=== PATIENT | male | born 1965 ===

== ENCOUNTER 2018-10-24 17:43 | Emergency (ER) | payer OTHER ==
[2018-10-24 18:07] VITALS: RESP 18; TEMP 99
--- NOTE | 2018-10-24 19:11 | ED PDOC ---
Upper Extremity Pain/Injury Time Seen by Provider: 10/24/18 18:09 Chief Complaint (Nursing): Upper Extremity Problem/Injury Chief Complaint (Provider): Upper Extremity Problem/Injury History Per: Patient History/Exam Limitations: no limitations Onset/Duration Of Symptoms: Hrs Current Symptoms Are (Timing): Still Present Additional Complaint(s): Patient is a 53 y/o male with no significant PMHx who presents to the ED for evaluation of a left hand injury at work. Patient states he was pulling a heavy metal rack when his hand got pinned between a metal pole and the rack he was pulling. Patient complains of pain since. Patient came straight to the ED and did not take pain medication prior to arrival. Patient denies numbness or tingling. PCP: None Provided Past Medical History Reviewed: Historical Data, Nursing Documentation, Vital Signs Vital Signs: Last Vital Signs Temp 99.0 F 10/24/18 17:50 Pulse 61 10/24/18 17:50 Resp 18 10/24/18 17:50 BP 191/93 H 10/24/18 17:50 Pulse Ox 98 10/24/18 17:50 - Medical History PMH: No Chronic Diseases - Surgical History Surgical History: No Surg Hx - Family History Family History: States: No Known Family Hx - Home Medications Home Medications: Ambulatory Orders Medication Instructions Recorded Ibuprofen [Motrin Tab] 600 mg PO Q6 PRN 7 Days tab 10/24/18 - Allergies Allergies/Adverse Reactions: Allergies Allergy/AdvReac Type Severity Reaction Status Date / Time No Known Allergies Allergy Verified 10/24/18 18:05 Review of Systems ROS Statement: Except As Marked, All Systems Reviewed And Found Negative Musculoskeletal: Positive for: Hand Pain (left) Neurological: Negative for: Numbness (or tingling) Physical Exam - Reviewed Nursing Documentation Reviewed: Yes Vital Signs Reviewed: Yes - Physical Exam Appears: Positive for: Uncomfortable Pulses-Radial (L): 2+ Pulses-Radial (R): 2+ Extremity: Positive for: Tenderness (to palpation of thenar eminence and palmar aspect to base of digits two through four; no tenderness or pain of anatomical snuff box), Capillary Refill (less than two seconds), Other (Ecchymosis on palmar aspect by third and fourth metacarpal of left hand). Negative for: Normal ROM (decreased flexion of the metacarpal and phalangeal joints) Neurological/Psych: Positive for: Alert, Oriented - ECG O2 Sat by Pulse Oximetry: 98 (RA) Pulse Ox Interpretation: Normal Medical Decision Making Medical Decision Making: Time: 1851 Impression: Left Hand Injury Plan: - Ibuprofen 600 mg PO - Hand Left 3 Views Routine [Rad] Hand x-ray read by me: no acute fracture or dislocation appreciated. AVILA bandage placed to left hand. Pt advised to ice and elevate hand for the next day. Stable for d/c home. Scribe Attestation: Documented by Rafy Marion, acting as a scribe for UMESH Hollingsworth Provider Scribe Attestation: All medical record entries made by the Scribe were at my direction and personally dictated by me. I have reviewed the chart and agree that the record accurately reflects my personal performance of the history, physical exam, medical decision making, and the department course for this patient. I have also personally directed, reviewed, and agree with the discharge instructions and disposition. Disposition - Clinical Impression Clinical Impression: Injury of hand - Patient ED Disposition Is Patient to be Admitted: No Counseled Patient/Family Regarding: Studies Performed, Diagnosis, Need For Followup, Rx Given - Disposition Referrals: Marybeth Wilson MD [Medical Doctor] - Disposition: Routine/Home Disposition Time: 19:45 Condition: STABLE Additional Instructions: Elevate hand and ice it. Take Ibuprofen or Tylenol as needed for pain. Use AVILA bandage for comfort. Follow up with hand specialist if pain persists or worsens. Prescriptions: Ibuprofen [Motrin Tab] 600 mg PO Q6 PRN 7 Days tab PRN Reason: Pain, Moderate (4-7) Instructions: Hand Pain (DC) Forms: [employer] (Pashto), [facility] ED School/Work Excuse Print Language: QATARI
[2018-10-24 19:43] VITALS: BP 168/88; PULSE 50
[2018-10-24 21:53] VITALS: O2SAT 98
--- NOTE | 2018-10-25 08:25 | RAD ---
PROCEDURE: Left Hand Radiographs. HISTORY: left hand injury, swelling COMPARISON: None. FINDINGS: BONES: No acute fracture or destructive bony lesion identified. JOINTS: Normal. No osteoarthritic changes. SOFT TISSUES: No retained radiodense foreign body or emphysema soft tissue changes are identified. Questionable edema related to the index and long fingers with soft tissues otherwise unremarkable appearing. OTHER FINDINGS: None. IMPRESSION: No acute fracture dislocation identified. Questionable edema related to the index and long fingers remaining soft tissues unremarkable.
== END 2018-10-24 19:45 | disposition home or self-care (01) ==
LOC: H.ER 17:43
DX: S69.92XA Unspecified injury of left wrist, hand and finger(s), initial encounter (principal); W23.0XXA Caught, crushed, jammed, or pinched between moving objects, initial encounter; Y99.0 Civilian activity done for income or pay